=== PATIENT | male | born 1980 | race Caucasian/White ===

== ENCOUNTER 2016-08-27 20:43 | Emergency (ER) | payer OTHER ==
[2016-08-27 21:06] VITALS: BP 162/85
--- NOTE | 2016-08-27 21:16 | PHYS DOC ---
Past Medical History Past Medical History: Anxiety, Depression Additional Past Medical Histor: CHRONIC BACK PAIN Past Surgical History: No Surgical History, Other Additional Past Surgical Histo: umbilical hernia repair, pilodnial cyst Alcohol Use: None Drug Use: None Adult General Chief Complaint Chief Complaint: [facility] HPI Patient is a 36 year old male presents emergency department stating that he has a chronic issue of back pain. He states that he takes oxycodone as well as Flexeril for his back pain. He also states he has a history of anxiety. Patient states he takes BuSpar for his anxiety. Patient states that he was being pulled over by the police tonight he knew that he had a warmth out for his arrest they asked him to sit in the backseat of the police car he states that he developed a severe anxiety attack became short of air. Patient states now that he has come to the emergency department and he was provided with a take it he feels much better and is ready to go home. He denies any numbness or tingling down to his lower extremities. He denies any shortness of air difficulty breathing. He denies any chest pain at this time. Review of Systems Review of Systems Constitutional: Denies fever or chills [] Eyes: Denies change in visual acuity, redness, or eye pain [] HENT: Denies nasal congestion or sore throat [] Respiratory: Denies cough C/o shortness of breath [] Cardiovascular: No additional information not addressed in HPI [] GI: Denies abdominal pain, nausea, vomiting, bloody stools or diarrhea [] : Denies dysuria or hematuria [] Musculoskeletal: Denies back pain or joint pain [] Integument: Denies rash or skin lesions [] Neurologic: Denies headache, focal weakness or sensory changes [] Allergies Allergies Allergies Coded Allergies Type Severity Reaction Last Updated Verified No Known Drug Allergies 08/28/13 No Physical Exam Physical Exam Constitutional: Well developed, well nourished, no acute distress, non-toxic appearance. [] HENT: Normocephalic, atraumatic, bilateral external ears normal, oropharynx moist, no oral exudates, nose normal. [] Eyes: PERRLA, EOMI, conjunctiva normal, no discharge. [] Neck: Normal range of motion, no tenderness, supple, no stridor. [] Cardiovascular:Heart rate regular rhythm, no murmur [] Lungs & Thorax: Bilateral breath sounds clear to auscultation [] Abdomen: Bowel sounds normal, soft, no tenderness, no masses, no pulsatile masses. [] Skin: Warm, dry, no erythema, no rash. [] Back: Left lower back pain and discomfort noted upon palpation. No spinal tenderness noted in the thoracic or lumbar area. No step-offs deformities or crepitus noted. Extremities: No tenderness, no cyanosis, no clubbing, ROM intact, no edema. [] Neurologic: Alert and oriented X 3, normal motor function, normal sensory function, no focal deficits noted. [] Psychologic: Affect normal, judgement normal, mood normal. [] Current Patient Data Vital Signs Vital Signs Date Time Temp Pulse Resp B/P Pulse Ox O2 Delivery O2 Flow Rate FiO2 08/27/16 21:06 98.3 94 20 97 Room Air 98.3 EKG EKG [] Radiology/Procedures Radiology/Procedures [] Course & Med Decision Making Course & Med Decision Making Pertinent Labs and Imaging studies reviewed. (See chart for details) Patient will be discharged home in stable condition with recommendations to continue using his home medications as prescribed. Patient was also recommended to follow-up with his primary care physician if he should develop further signs and symptoms of anxiety issues. Patient will also continue with his home medications for his back pain. Patient is able to ambulate in the room with a good steady gait. He'll be discharged home in stable condition since symptoms to return back to emergency department have been provided. Patient agrees with discharge instructions treatment regimens and follow-up recommendations. [] Dragon Disclaimer Dragon Disclaimer This electronic medical record was generated, in whole or in part, using a voice recognition dictation system. Departure Departure Impression: Primary Impression: Anxiety Additional Impression: Chronic back pain Disposition: 01 HOME, SELF-CARE Condition: STABLE Referrals: NON,STAFF (PCP) Patient Instructions: Anxiety and Panic Attacks, [id number], Chronic Back Pain Additional Instructions: Activity as tolerated. Continue your home medications as prescribed. Follow-up through primary care physician within the next week. Return back to emergency department for signs and symptoms of become worse. Problem Qualifiers VENKATA STAPLES NP Aug 27, 2016 21:16
== END 2016-08-27 21:27 | disposition home or self-care (01) ==
LOC: ER 20:43
DX: F41.9 Anxiety disorder, unspecified (principal); G89.29 Other chronic pain; M54.5 Low back pain; F32.9 Major depressive disorder, single episode, unspecified; Z79.899 Other long term (current) drug therapy
CPT/HCPCS: 99284

== ENCOUNTER 2016-09-02 22:50 | Emergency (ER) | payer SELFPAY ==
[~2016-09-02] VITALS: Ht 175.3 cm; Wt 81.6 kg
[2016-09-02 22:50] VITALS: BP 141/94
--- NOTE | 2016-09-02 23:09 | PHYS DOC ---
Past Medical History Past Medical History: Anxiety, Depression Additional Past Medical Histor: CHRONIC BACK PAIN Past Surgical History: No Surgical History, Other Additional Past Surgical Histo: umbilical hernia repair, pilodnial cyst Alcohol Use: None Drug Use: None Adult General HPI HPI Patient is a 36 year old male presents emergency room via EMS transport with police escort for complaint of tailbone pain and swelling that began approximately one week ago. Patient does have a history of pilonidal cysts. Patient states he was seen at [facility] 3 days ago and has a prescription for when he believes is Keflex. He has not had the prescription filled as of yet. The reason for patient's transport here to the emergency department tonight was that patient was apprehended by police for shoplifting. Upon his processing in assisted, patient complained of having a tailbone infection and pain x-rays brought in here to the emergency room for further evaluation. Review of Systems Review of Systems Constitutional: Denies fever or chills [] Eyes: Denies change in visual acuity, redness, or eye pain [] HENT: Denies nasal congestion or sore throat [] Respiratory: Denies cough or shortness of breath [] Cardiovascular: No additional information not addressed in HPI [] GI: Denies abdominal pain, nausea, vomiting, bloody stools or diarrhea [] : Denies dysuria or hematuria [] Musculoskeletal: Denies back pain or joint pain [] Integument: Denies rash or skin lesions [] Neurologic: Denies headache, focal weakness or sensory changes [] Endocrine: Denies polyuria or polydipsia [] Allergies Allergies Allergies Coded Allergies Type Severity Reaction Last Updated Verified No Known Drug Allergies 08/28/13 No Physical Exam Physical Exam Constitutional: Well developed, well nourished, no acute distress, non-toxic appearance. [] HENT: Normocephalic, atraumatic, bilateral external ears normal, oropharynx moist, no oral exudates, nose normal. [] Eyes: PERRLA, EOMI, conjunctiva normal, no discharge. [] Neck: Normal range of motion, no tenderness, supple, no stridor. [] Cardiovascular:Heart rate regular rhythm, no murmur [] Lungs & Thorax: Bilateral breath sounds clear to auscultation [] Abdomen: Bowel sounds normal, soft, no tenderness, no masses, no pulsatile masses. [] Skin: There is an indurated area at the top of the gluteal cleft without erythema or fluctuant pocket. There is no active purulent drainage at this time. Back: No tenderness, no CVA tenderness. [] Extremities: No tenderness, no cyanosis, no clubbing, ROM intact, no edema. [] Neurologic: Alert and oriented X 3, normal motor function, normal sensory function, no focal deficits noted. [] Psychologic: Affect normal, judgement normal, mood normal. [] EKG EKG [] Radiology/Procedures Radiology/Procedures [] Course & Med Decision Making Course & Med Decision Making Pertinent Labs and Imaging studies reviewed. (See chart for details) [] Dragon Disclaimer Dragon Disclaimer This electronic medical record was generated, in whole or in part, using a voice recognition dictation system. Departure Departure Impression: Primary Impression: Pilonidal cyst without abscess Disposition: 01 HOME, SELF-CARE Condition: GOOD Referrals: BLAYNE HERNANDEZ PA-C (PCP) Patient Instructions: Pilonidal Cyst Additional Instructions: 1. Take the antibiotic that we were prescribed previously from [facility]. 2. Apply warm compresses to the area every 2 hours for 20-30 minutes at a time. 3. You can take ibuprofen every 8 hours for the discomfort. 4. When she released from police custody, you can follow-up with your primary care doctor for wound evaluation. NISHANT JIMÉNEZ Sep 02, 2016 23:08
== END 2016-09-02 23:14 | disposition home or self-care (01) ==
LOC: ER 22:50
DX: L05.91 Pilonidal cyst without abscess (principal); G89.29 Other chronic pain; F32.9 Major depressive disorder, single episode, unspecified; F41.9 Anxiety disorder, unspecified; Z98.890 Other specified postprocedural states
CPT/HCPCS: 99283

== ENCOUNTER 2016-10-18 12:05 | Emergency (ER) | payer SELFPAY ==
[~2016-10-18] VITALS: Ht 175.3 cm; Wt 86.2 kg
[2016-10-18 12:30] VITALS: BP 122/81
[2016-10-18] MEDS ORDERED: OXYCODONE ER 15 MG TAB.ER.12H. PO STA ×2 (12:43→12:55)
--- NOTE | 2016-10-18 12:54 | PHYS DOC ---
Past Medical History Past Medical History: Depression, Other Additional Past Medical Histor: CHRONIC BACK PAIN Past Surgical History: Other Additional Past Surgical Histo: umbilical hernia repair, pilodnial cyst Additional Information: 0.5 [employer] Alcohol Use: None Drug Use: None Adult General Chief Complaint Chief Complaint: MULTIPLE COMPLAINTS [facility] Patient is a 36 year old male with history of depression and chronic back and arm pain who presents today with chronic back and bilateral arm pain. Patient states he normally takes Flexeril Cymbalta gabapentin tramadol and oxycodone which he is out of. He is currently under house arrest and states he is not able to go see any providers. Patient denies any new injuries. Denies any pain radiating to bilateral lower extremities. Denies any loss of bowel bladder function. Review of Systems Review of Systems Constitutional: Denies fever or chills [] Eyes: Denies change in visual acuity, redness, or eye pain [] HENT: Denies nasal congestion or sore throat [] Respiratory: Denies cough or shortness of breath [] Cardiovascular: No additional information not addressed in [facility] [] GI: Denies abdominal pain, nausea, vomiting, bloody stools or diarrhea [] : Denies dysuria or hematuria [] Musculoskeletal: Chronic back and bilateral arm pain Integument: Denies rash or skin lesions [] Neurologic: Denies headache, focal weakness or sensory changes [] Endocrine: Denies polyuria or polydipsia [] Current Medications Current Medications Current Medications Medications (Trade) Dose Ordered Sig/Ashlee Start Time Stop Time Status Last Admin Dose Admin Cyclobenzaprine HCl (Flexeril) 10 mg 1X ONCE 10/18/16 13:15 10/18/16 13:16 Oxycodone HCl (Oxycontin) 2 mg 1X STAT 10/18/16 12:43 10/18/16 12:44 UNV Allergies Allergies Allergies Coded Allergies Type Severity Reaction Last Updated Verified No Known Drug Allergies 08/28/13 No Physical Exam Physical Exam Constitutional: Well developed, well nourished, no acute distress, non-toxic appearance. [] HENT: Normocephalic, atraumatic, bilateral external ears normal, oropharynx moist, no oral exudates, nose normal. [] Eyes: PERRLA, EOMI, conjunctiva normal, no discharge. [] Neck: Normal range of motion, no tenderness, supple, no stridor. [] Cardiovascular:Heart rate regular rhythm, no murmur [] Lungs & Thorax: Bilateral breath sounds clear to auscultation [] Abdomen: Bowel sounds normal, soft, no tenderness, no masses, no pulsatile masses. [] Skin: Warm, dry, no erythema, no rash. [] Back: Diffuse tenderness to paraspinal muscles of the lumbar spine, no midline tenderness, no CVA tenderness. [] Extremities: Diffuse tenderness to bilateral upper extremities especially elbows. Full range of motion to bilateral upper extremities. Adequate flexion and extension of bilateral upper extremities. Adequate plantar flexion and a flexion on bilateral forearms. +2 bilateral radial pulses, adequate radial medial and ulnar sensation to bilateral upper extremities. Left lower extremity with house arrest brace Neurologic: Alert and oriented X 3, normal motor function, normal sensory function, no focal deficits noted. [] Psychologic: Affect normal, judgement normal, mood normal. [] Current Patient Data Vital Signs Vital Signs Date Time Temp Pulse Resp B/P Pulse Ox O2 Delivery O2 Flow Rate FiO2 10/18/16 12:30 98 88 22 122/81 97 Room Air 98.0 EKG EKG [] Radiology/Procedures Radiology/Procedures [] Course & Med Decision Making Course & Med Decision Making Pertinent Labs and Imaging studies reviewed. (See chart for details) Patient is in the ED with complaints of chronic back and upper extremity pain. He is currently under house arrest. He states he is out of Flexeril Cymbalta gabapentin,tramadol, oxycodone. Informed patient I will give him a prescription for Flexeril and he can follow up with a primary care doctor. We gave him a doctor's list. I told him he is to contact his customs officer to be arthritis to to leave the house and go see a doctor. Isabella Disclaimer Dragon Disclaimer This electronic medical record was generated, in whole or in part, using a voice recognition dictation system. Departure Departure Impression: Primary Impression: Acute exacerbation of chronic low back pain Additional Impression: Chronic upper extremity pain Disposition: 01 HOME, SELF-CARE Condition: STABLE Referrals: BLAYNE HERNANDEZ PA-C (PCP) Follow-up with your doctor as soon as possible Patient Instructions: Musculoskeletal Pain Additional Instructions: You were seen for chronic musculoskeletal pain. Follow-up with your doctor as soon as possible. Scripts Cyclobenzaprine Hcl 10 Mg Tablet1 Tab PO TID #30 TAB Prov:RADHA WARNER APRN 10/18/16 Problem Qualifiers Additional Impression: Chronic upper extremity pain Laterality: bilateral Qualified Code: M79.601 - Pain in right arm RADHA WARNER APRN Oct 18, 2016 12:54
[2016-10-18] MEDS ORDERED: CYCL10TA2 PO (13:01)
[2016-10-18] MEDS ORDERED: CYCLOBENZAPRINE 10 MG TABLET. PO ONE (13:15)
== END 2016-10-18 13:09 | disposition home or self-care (01) ==
LOC: ER 12:05
DX: G89.29 Other chronic pain (principal); M54.5 Low back pain; M79.601 Pain in right arm; M79.602 Pain in left arm; F32.9 Major depressive disorder, single episode, unspecified; F17.210 Nicotine dependence, cigarettes, uncomplicated
CPT/HCPCS: 99284